=== PATIENT | male | born 1995 | race Caucasian/White ===

== ENCOUNTER 2023-02-19 04:39 | Day surgery (SDC) | payer OTHER ==
[2023-02-18 14:39] VITALS: BMI 20.2
[2023-02-19 12:20] VITALS: RESP 20
[2023-02-19 12:25] VITALS: BP 111/64; PULSE 76; TEMP 97.8
== END 2023-02-19 12:34 | disposition home or self-care (01) ==
LOC: JASU-ENDO 04:39
PROVIDERS: ATTEND Student in an Organized Health Care Education/Training Program
PROC: 0DB78ZX Excision of Stomach, Pylorus, Via Natural or Artificial Opening Endoscopic, Diagnostic (ICD-10-PCS; 2023-02-19)
PROC: 0DB68ZX Excision of Stomach, Via Natural or Artificial Opening Endoscopic, Diagnostic (ICD-10-PCS; 2023-02-19)
PROC: 0DB48ZX Excision of Esophagogastric Junction, Via Natural or Artificial Opening Endoscopic, Diagnostic (ICD-10-PCS; principal; 2023-02-19 11:30)
DX: K29.50 Unspecified chronic gastritis without bleeding (principal); K21.00 Gastro-esophageal reflux disease with esophagitis, without bleeding
CPT/HCPCS: 88305-TC; 88342-TC